=== PATIENT | female | born 1970 | race Two or more races ===

== ENCOUNTER 2018-01-09 19:28 | Emergency (ER) | payer SELFPAY ==
[~2018-01-09] VITALS: Ht 152.4 cm; Wt 63.5 kg
[2018-01-09 19:40] VITALS: BP 133/87
[2018-01-09] MEDS ORDERED: IBUPROFEN 800 MG TAB PO ONE ×2 (22:29→22:30)
== END 2018-01-10 00:30 | disposition home or self-care (01) ==
LOC: ER 19:28
DX: S80.02XA Contusion of left knee, initial encounter (principal); W01.0XXA Fall on same level from slipping, tripping and stumbling without subsequent striking against object, initial encounter; Y93.89 Activity, other specified; Y92.89 Other specified places as the place of occurrence of the external cause; Y99.8 Other external cause status
CPT/HCPCS: 73562; 81025